=== PATIENT | male | born 1995 | race Two or more races ===

== ENCOUNTER 2023-11-08 09:41 | Outpatient (CLI) | payer MEDICAID | END 2023-11-08 23:59 | disposition home or self-care (01) | LOC: MRI 09:41 | PROVIDERS: ATTEND Family Medicine | DX: S29.011A Strain of muscle and tendon of front wall of thorax, initial encounter (principal); R60.9 Edema, unspecified; X58.XXXA Exposure to other specified factors, initial encounter; Y93.89 Activity, other specified; Y92.89 Other specified places as the place of occurrence of the external cause; Y99.8 Other external cause status | CPT/HCPCS: 71550 ==